=== PATIENT | female | born 1985 | race Caucasian/White ===

== ENCOUNTER 2016-10-01 08:35 | Emergency (ER) | payer BC ==
[2016-10-01 08:40] VITALS: BP 124/85; PULSE 91; TEMP 98; BMI 25.0
[2016-10-01] MEDS ORDERED: ACETAMINOPHEN 500 MG TABLET (FP) PO ONE (09:12)
--- NOTE | 2016-10-01 09:15 | PDOC ---
History of Present Illness - General Chief Complaint: Respiratory Stated Complaint: CHEST PAIN, SOB Time Seen by Provider: 10/01/16 09:11 History Source: Patient Exam Limitations: No Limitations - History of Present Illness Initial Comments: 10/01/16 09:12 Agent came to emergency department for evaluation of fevers, chills, generalized body aches, sore throat pain 2 days. 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 No one at home is sick. 10/01/16 10:03 10/01/16 12:44 Timing/Duration: reports: just prior to arrival Severity: reports: mild, moderate Associated Symptoms: reports: chest pain/soreness, cough, fever/chills, nasal congestion, nasal drainage, sore throat Beta Jessica Given by EMS(Core Measure): No Beta Jessica Taken at Home(Core Measure): No Beta Jessica Not Indicated at this Time(Core Measure): No Past History - Travel Traveled outside of the country in the last 30 days: No Close contact w/someone who was outside of country & ill: No - Past Medical History Allergies/Adverse Reactions: Allergies Allergy/AdvReac Type Severity Reaction Status Date / Time No Known Allergies Allergy Verified 10/01/16 08:37 Home Medications: Ambulatory Orders No Home Medications 0 dose .ROUTE UTDICT 12/22/12 Azithromycin [Zithromax -] 250 mg PO UTDICT #6 tab 10/01/16 Anemia: No Asthma: No Cardiac Disorders: No Diabetes: No HTN: No Hypercholesterolemia: No - Reproductive History (#): 2 Para: 0 Therapeutic (s) & number: Yes - Psycho/Social/Smoking Cessation Hx Anxiety: No Suicidal Ideation: No Smoking Status: Yes Smoking History: Never smoked Have you smoked in the past 12 months: No Number of Cigarettes Smoked Daily: 4 Information on smoking cessation initiated: No Hx Alcohol Use: No Drug/Substance Use Hx: No Substance Use Type: None Respiratory Specific PMHX - Complaint Specific PMHX Bronchitis: No Pneumonia: No Review of Systems - Review of Systems Able to Perform ROS?: Yes Is the patient limited Hungarian proficient: Yes Constitutional: Yes: Symptoms Reported, See HPI, Malaise HEENTM: Yes: See HPI, Nose Congestion, Throat Pain, Difficulty Swallowing. No: Symptoms Reported Respiratory: Yes: Symptoms reported, See HPI, Cough (moist non productive ) ABD/GI: No: Symptoms Reported Musculoskeletal: Yes: See HPI. No: Symptoms Reported Integumentary: Yes: Symptoms Reported, See HPI Neurological: No: Symptoms reported All Other Systems: Reviewed and Negative *Physical Exam - Vital Signs Last Vital Signs Temp Pulse Resp BP Pulse Ox 98 F 91 H 18 124/85 100 10/01/16 08:37 10/01/16 08:37 10/01/16 08:37 10/01/16 08:37 10/01/16 08:37 - Physical Exam General Appearance: Yes: Nourished, Appropriately Dressed, Apparent Distress, Mild Distress HEENT: positive: GIACOMO, TMs Normal, Pharyngeal Erythema, Nasal Congestion (lastly ), Rhinorrhea, Sinus Tenderness. negative: Normal ENT Inspection, Pharynx Normal, Tonsillar Exudate Neck: positive: Supple, Lymphadenopathy (R), Lymphadenopathy (L). negative: Tender Respiratory/Chest: positive: Lungs Clear, Normal Breath Sounds. negative: Respiratory Distress, Wheezing Cardiovascular: positive: Regular Rhythm Gastrointestinal/Abdominal: positive: Normal Bowel Sounds, Soft. negative: Tender Musculoskeletal: positive: Normal Inspection. 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 Patient given a watch and wait Zithromax prescription, understands will hold unless fevers greater than 101.5, purulent drainage from nose or cough or worsening symptoms and will start with follow-up at PMD *DC/Admit/Observation/Transfer Diagnosis at time of Disposition: Upper respiratory infection, viral - Discharge Dispostion Disposition: HOME Condition at time of disposition: Stable Admit: No - Prescriptions Prescriptions: Azithromycin [Zithromax -] 250 mg PO UTDICT #6 tab - Referrals Referrals: Amada Lau NP [Primary Care Provider] - - Patient Instructions Additional Instructions: Rest, drink lots of fluids: Teas, water, soups, Pedialyte Saltwater gargles Steamy showers/seem to face break up mucus Avoid contact with others until fevers and cough resolved Lots of handwashing and good hygiene Continue [id number] medications for symptomatic relief Tylenol or Motrin for fever and pain Start Zithromax for fevers greater than 101, worsening symptoms, and follow-up with PMD Followup with private physician in one to 2 days as needed Return to emergency department for worsened symptoms, fevers, dehydration - Post Discharge Activity Work/School Note: Back to Work, Back to School
[2016-10-01] MEDS ORDERED: ACETAMINOPHEN 500 MG TABLET (FP) ONE (09:19)
--- NOTE | 2016-10-04 10:11 | EKG ---
Test Reason : Blood Pressure : / mmHG Vent. Rate : 088 BPM Atrial Rate : 088 BPM P-R Int : 182 ms QRS Dur : 080 ms QT Int : 356 ms P-R-T Axes : 046 043 036 degrees QTc Int : 430 ms NORMAL SINUS RHYTHM NORMAL ECG NO PREVIOUS ECGS AVAILABLE Confirmed by OSCAR HOLBROOK MD ([id number]) on 10/04/2016 10:10:58 AM Referred By: Confirmed By:OSCAR HOLBROOK MD
== END 2016-10-01 11:03 | disposition home or self-care (01) ==
LOC: JERFT 08:35
DX: J06.9 Acute upper respiratory infection, unspecified (principal)
CPT/HCPCS: 84703; 87070; 87430; 87804; 93005; 93010; 99281-25

== ENCOUNTER 2018-08-01 22:08 | Emergency (ER) | payer SELFPAY ==
--- NOTE | 2018-08-01 22:23 | PDOC ---
History of Present Illness - General Stated Complaint: VOMITING Time Seen by Provider: 08/01/18 22:22 History Source: Patient Past History - Past Medical History Allergies/Adverse Reactions: Allergies Allergy/AdvReac Type Severity Reaction Status Date / Time No Known Allergies Allergy Verified 10/01/16 08:37 Home Medications: Ambulatory Orders No Home Medications 0 dose .ROUTE UTDICT 12/22/12 Azithromycin [Zithromax -] 250 mg PO UTDICT #6 tab 10/01/16 Anemia: No Asthma: No Cardiac Disorders: No Diabetes: No HTN: No Hypercholesterolemia: No - Reproductive History (#): 2 Para: 0 Therapeutic (s) & number: Yes - Suicide/Smoking/Psychosocial Hx Smoking Status: Yes Smoking History: Never smoked Have you smoked in the past 12 months: No Number of Cigarettes Smoked Daily: 4 Hx Alcohol Use: No Drug/Substance Use Hx: No Substance Use Type: None
[2018-08-01] MEDS ORDERED: SODIUM CHLORIDE 0.9% 1000 ML INFUS.BAG IV ONE ×2 (22:29→23:17)
[2018-08-01] MEDS ORDERED: ONDANSETRON 4 MG/2 ML VIAL IVPUSH ONE (22:29)
[2018-08-01] MEDS ORDERED: ACETAMINOPHEN 1000 MG/100 ML VIAL (NON FORMULARY) IVPB ONE (22:29)
[2018-08-01] MEDS ORDERED: FAMOTIDINE 20 MG/50 ML IVPB 20 MG/50 ML MG IVPB ONE ×2 (22:30→22:34)
[2018-08-01 22:33] VITALS: BMI 25.7
[2018-08-01] MEDS ORDERED: ACETAMINOPHEN INJECTION 100 ML IVPB ONE (22:33)
[2018-08-01] MEDS ORDERED: ONDANSETRON 4 MG/2 ML VIAL ONE (22:33)
[2018-08-01 22:39] LABS: VENOUS PC02 24.2 mmHg (38-52); VENOUS PH 7.51 (7.32-7.42); VENOUS PO2 28.2 mmHg (28-48)
[2018-08-01 22:45] LABS: BASO % 0.5 % (0-2.0); EOS % 0.1 % (0-4.5); HEMATOCRIT 41.6 % (32.4-45.2); HEMOGLOBIN 14.2 GM/dL (10.7-15.3); LYMPH % 6.4 % (8-40); MCH 31.8 pg (25.7-33.7); MCHC 34.1 g/dl (32.0-36.0); MEAN CELL VOLUME 93.3 fl (80-96); MEAN PLT VOLUME 8.4 fl (7.5-11.1); MONO % 4.8 % (3.8-10.2); NEUT % 88.2 % (42.8-82.8); PLATELET COUNT 371 K/MM3 (134-434); RBC 4.45 M/mm3 (3.60-5.2); WHITE BLOOD COUNT 16.2 K/mm3 (4.0-10.0)
--- NOTE | 2018-08-01 23:02 | PDOC ---
History of Present Illness - General Chief Complaint: Nausea/Vomiting Stated Complaint: VOMITING Time Seen by Provider: 08/01/18 22:22 History Source: Patient Exam Limitations: No Limitations - History of Present Illness Initial Comments: 08/01/18 22:35 The patient is a 32F with no PMH who presents to the ER with 5 hours of abrupt onset abdominal cramps, nausea, and vomiting. The patient is with her who provides some of the history. The patient states that they were out to eat and prior to eating any food, she began to feel nauseous. They had to leave the restaurant early due to her not feeling well. When they got home, she began to have NBNB vomiting and abdominal cramping. This continued to progress to spasms and she is now complaining of nausea, abdominal cramping, and hands and feet cramping. Past History - Past Medical History Allergies/Adverse Reactions: Allergies Allergy/AdvReac Type Severity Reaction Status Date / Time No Known Allergies Allergy Verified 08/01/18 22:33 Home Medications: Ambulatory Orders No Home Medications 0 dose .ROUTE UTDICT 12/22/12 Azithromycin [Zithromax -] 250 mg PO UTDICT #6 tab 10/01/16 Anemia: No Asthma: No Cardiac Disorders: No COPD: No CHF: No Diabetes: No HTN: No Hypercholesterolemia: No - Reproductive History (#): 2 Para: 0 Therapeutic (s) & number: Yes - Suicide/Smoking/Psychosocial Hx Smoking Status: Yes Smoking History: Never smoked Have you smoked in the past 12 months: No Number of Cigarettes Smoked Daily: 4 Information on smoking cessation initiated: No Hx Alcohol Use: No Drug/Substance Use Hx: No Substance Use Type: None Review of Systems - Review of Systems Able to Perform ROS?: Yes Comments:: 08/01/18 23:47 GENERAL/CONSTITUTIONAL: No fever or chills. No weakness. HEAD, EYES, EARS, NOSE AND THROAT: No change in vision. No ear pain or discharge. No sore throat. CARDIOVASCULAR: No chest pain, palpitations, or lightheadedness. RESPIRATORY: No cough, wheezing, shortness of breath, or hemoptysis. GASTROINTESTINAL: Positive for nausea, vomiting, and abdominal cramping. GENITOURINARY: No dysuria, frequency, hematuria, or change in urination. MUSCULOSKELETAL: Positive for cramping in hands and feet. SKIN: No rash or lesions. NEUROLOGIC: No headache, numbness, tingling, focal weakness, loss of consciousness, or change in strength/sensation. ENDOCRINE: No increased thirst. No abnormal weight change. HEMATOLOGIC/LYMPHATIC: No anemia, easy bleeding, or history of blood clots. ALLERGIC/IMMUNOLOGIC: No hives or skin allergy. Is the patient limited [place] proficient: No *Physical Exam - Vital Signs Last Vital Signs Temp Pulse Resp BP Pulse Ox 97.3 F L 95 H 22 H 130/72 98 08/01/18 22:31 08/01/18 22:31 08/01/18 22:31 08/01/18 22:31 08/01/18 22:31 - Physical Exam Comments: 08/01/18 23:51 GENERAL: Well developed, well nourished. Awake and alert. In mild distress. HEENT: Normocephalic, atraumatic. Hearing grossly normal. Moist mucous membranes. PERRLA, EOMI. No conjunctival pallor. NECK: Supple. Full ROM. CARDIOVASCULAR: Regular rate and rhythm. No murmurs, rubs, or gallops. PULMONARY: Tachypneic. Lungs clear to auscultation bilaterally. No wheezing, rales or rhonchi. ABDOMINAL: Soft. Diffusely tender. Non-distended. No rebound or guarding. MUSCULOSKELETAL: Normal range of motion at all joints. No bony deformities or tenderness. EXTREMITIES: No cyanosis. No clubbing. No edema. No calf tenderness or swelling. SKIN: Warm and dry. Normal capillary refill. No rashes. No jaundice. NEUROLOGICAL: Alert, awake, appropriate. Cranial nerves 2-12 grossly intact. Normal speech. Gait is normal without ataxia. PSYCHIATRIC: Cooperative. Good eye contact. Appropriate mood and affec Moderate Sedation - Procedure Monitoring Vital Signs: Procedure Monitoring Vital Signs Temperature 97.3 F L 08/01/18 22:31 Pulse Rate 95 H 08/01/18 22:31 Respiratory Rate 22 H 08/01/18 22:31 Blood Pressure 130/72 08/01/18 22:31 O2 Sat by Pulse Oximetry (%) 98 08/01/18 22:31 ED Treatment Course - LABORATORY CBC & Chemistry Diagram: 08/01/18 22:30 08/01/18 22:30 Medical Decision Making - Medical Decision Making 08/01/18 23:56 THe patient is a 32F with no pMH who presents with acute onset vomiting, nausea , and abdominal cramping. Pt denies bloody BMs, sick contacts, and other people who are sick who ate the same foods as her. Will treat symptomatically and reassess. 08/02/18 00:33 Pt is continuing to complain of nausea. CBC significant for WBC of 16 with left shift. CMP shows mild hypokalemia of 3.4. Will replete. Nausea is persisting after reglan and banana bag. Will give 4 zofran and 0.5mg ativan IV for anxiolysis. 08/02/18 01:08 Pt continuing to complain of nausea and not tolerating PO. Will discuss with inpatient team. 08/02/18 01:20 Pt has 2+ ketones. Will add serum acetone to evaluate for DKA. 08/02/18 01:40 Acetone negative. 08/02/18 01:51 Pt admits to smoking marijuana 3x/day. Already given ativan. Will d/c with PCP f /u. *DC/Admit/Observation/Transfer Diagnosis at time of Disposition: Hyperemesis - Discharge Dispostion Disposition: HOME Condition at time of disposition: Stable Decision to Admit order: No - Referrals - Patient Instructions Printed Discharge Instructions: DI for Nausea -- Adult Additional Instructions: Please follow up with your primary care physician in 2-3 days. Take a hot shower to feel better. Please return to the ER if you have any signs or symptoms of chest pain, shortness of breath, uncontrollable fever, chills, nausea, vomiting, numbness, tingling, or weakness in any part of your body, changes in vision, or slurred speech. Please return to the ER if symptoms persist, worsen, or new symptoms arise. - Post Discharge Activity
[2018-08-01 23:03] LABS: ALBUMIN 4.5 g/dl (3.4-5.0); ALK PHOS 64 U/L (45-117); ANION GAP 16 MMOL/L (8-16); BILIRUBIN,TOTAL 0.5 mg/dL (0.2-1); BLOOD UREA NITROGEN 15 mg/dL (7-18); CALCIUM 9.3 mg/dL (8.5-10.1); CHLORIDE 105 mmol/L (98-107); CO2 19 mmol/L (21-32); GLUCOSE,RANDOM 145 mg/dL (74-106); LIPASE 205 U/L (73-393); POTASSIUM 3.4 mmol/L (3.5-5.1); SGOT/AST 13 U/L (15-37); SGPT/ALT 20 U/L (13-61); SODIUM 140 mmol/L (136-145)
[2018-08-01] MEDS ORDERED: METOCLOPRAMIDE HCL INJECTION 10 MG/2 ML VIAL IVPB ONE (23:17)
[2018-08-01] MEDS ORDERED: METOCLOPRAMIDE HCL INJECTION 10 MG/2 ML VIAL ONE (23:18)
--- NOTE | 2018-08-01 23:21 | PDOC ---
Attending Attestation - HPI HPI: 08/01/18 23:58 The patient is a 32 year old female with no past medical history here today for evaluation of vomiting and cramping. The patient reports that 6 hours ago she was in a restaurant with her when she began to not feel well. She reports going home when her nausea and vomiting began. She reports that abdominal cramping began after she vomited. Patient also reports hand and lower extremity cramping to the point where she had difficulty standing. Patient denies headache, lightheadedness. Denies fever, chills. Denies chest pain, shortness of breath. Denies diarrhea. Allergies: NKA PCP: none reported <Christ Wilkes - Last Filed: 08/01/18 23:58> - Resident Resident Name: Oscar Campos - ED Attending Attestation I have performed the following: I have examined & evaluated the patient, The case was reviewed & discussed with the resident, I agree w/resident's findings & plan - Physicial Exam PE: 08/02/18 00:47 Pt has no flank pain. She is not febrile. She has normal heart rate. Abd is soft NT ND. No rebound and no guarding. Pt keeps bending her arm and she is not getting her IVF abnana bag. - Medical Decision Making 08/02/18 01:22 Pt has 2+ ketones. She is nauseous. We will push D50. Waiting for pt to receive the balance of her banana bag, she will be further hydrated as needed. K+ 10meQ will be given. Pr will be reassessed later 08/02/18 06:47 Pt felt better and she was discharged. She admitted that she uses marijuana throughout the day and likely has cyclical vomiting due to that. <Della Leigh - Last Filed: 08/02/18 06:47>
[2018-08-01] MEDS ORDERED: MAGNESIUM SULF 50% (8.12 MEQ/2 ML-1 GM VIAL) IVPB ONE (23:37)
[2018-08-01] MEDS ORDERED: KCL 10 MEQ IVPB 10 MEQ/100 ML INFUS.BAG IVPB SCH (23:45)
[2018-08-01] MEDS ORDERED: FOLIC ACID INJECTION - 1 MG, THIAMINE HCL 100 MG, MULTIVIT INJECTION ADULT 10 ML in SOD... IVPB ONE (23:52)
[2018-08-01] MEDS ORDERED: MAGNESIUM 1GM/D5W - 2 GM/200 ML IVPB IVPB ONE (23:54)
[2018-08-02] MEDS ORDERED: ONDANSETRON 4 MG/2 ML VIAL IVPUSH ONE (00:32)
[2018-08-02] MEDS ORDERED: LORazepam 2 MG/ML SDV VIAL ONE (00:39)
[2018-08-02] MEDS ORDERED: ONDANSETRON 4 MG/2 ML VIAL ONE (00:40)
[2018-08-02 00:52] LABS: URINE APPEARANCE CLEAR; URINE BILIRUBIN NEGATIVE (<2.0 mg/dL); URINE COLOR YELLOW; URINE GLUCOSE (UA) NEGATIVE (NEGATIVE); URINE KETONE 2+ (NEGATIVE); URINE LEUK ESTERASE NEGATIVE (NEGATIVE); URINE NITRITE NEGATIVE (NEGATIVE); URINE PROTEIN 1+ (NEGATIVE); URINE UROBILINOGEN NEGATIVE mg/dL (0.2-1.0)
[2018-08-02 00:58] LABS: EPI CELLS RARE /HPF (FEW); URINE BACTERIA RARE /hpf (NONE SEEN); URINE MUCUS FEW
[2018-08-02] MEDS ORDERED: KCL 10 MEQ IVPB 10 MEQ/100 ML INFUS.BAG IVPB SCH (01:00)
[2018-08-02] MEDS ORDERED: KCL 10 MEQ IVPB 10 MEQ/100 ML INFUS.BAG IVPB ONE (01:11)
[2018-08-02] MEDS ORDERED: DEXTROSE 50%-WATER - 25 GM/50 ML VIAL IVPUSH ONE (01:15)
[2018-08-02 01:21] VITALS: BP 93/52; PULSE 60; TEMP 97.5
[2018-08-02] MEDS ORDERED: DEXTROSE 50%-WATER - 25 GM/50 ML VIAL ONE (02:13)
== END 2018-08-02 02:51 | disposition home or self-care (01) ==
LOC: JER 22:08
PROC: 3E033GC Introduction of Other Therapeutic Substance into Peripheral Vein, Percutaneous Approach (ICD-10-PCS; principal; 2018-08-01)
PROC: 3E033GC Introduction of Other Therapeutic Substance into Peripheral Vein, Percutaneous Approach (ICD-10-PCS; 2018-08-01)
PROC: 3E033NZ Introduction of Analgesics, Hypnotics, Sedatives into Peripheral Vein, Percutaneous Approach (ICD-10-PCS; 2018-08-01)
PROC: 3E033GC Introduction of Other Therapeutic Substance into Peripheral Vein, Percutaneous Approach (ICD-10-PCS; 2018-08-01)
PROC: 3E033GC Introduction of Other Therapeutic Substance into Peripheral Vein, Percutaneous Approach (ICD-10-PCS; 2018-08-01)
PROC: 3E033GC Introduction of Other Therapeutic Substance into Peripheral Vein, Percutaneous Approach (ICD-10-PCS; 2018-08-01)
PROC: 3E0337Z Introduction of Electrolytic and Water Balance Substance into Peripheral Vein, Percutaneous Approach (ICD-10-PCS; 2018-08-01)
DX: R11.10 Vomiting, unspecified (principal); E87.6 Hypokalemia; R25.2 Cramp and spasm
CPT/HCPCS: 36415; 80053; 81003; 81015; 82009; 82803; 83690; 84703; 85025; 99283-25; J0131; J7030

== ENCOUNTER 2020-10-10 08:21 | Emergency (ER) | payer BC, OTHER ==
[2020-10-10 08:29] VITALS: BP 125/83; PULSE 84; TEMP 98.6; BMI 22.4
== END 2020-10-10 09:32 | disposition home or self-care (01) ==
LOC: JER 08:21
DX: K64.9 Unspecified hemorrhoids (principal)
CPT/HCPCS: 99282-25

== ENCOUNTER 2020-10-12 07:35 | Emergency (ER) | payer BC, OTHER ==
[2020-10-12 07:45] VITALS: BP 117/77; PULSE 91; BMI 23.3
[2020-10-12 09:55] LABS: BASO % 0.7 % (0-2.0); EOS % 0.7 % (0-4.5); HEMATOCRIT 40.4 % (32.4-45.2); HEMOGLOBIN 13.7 GM/dL (10.7-15.3); LYMPH % 17.6 % (8-40); MCH 31.7 pg (25.7-33.7); MCHC 33.9 g/dl (32.0-36.0); MEAN CELL VOLUME 93.6 fl (80-96); MEAN PLT VOLUME 8.9 fl (7.5-11.1); MONO % 6.3 % (3.8-10.2); NEUT % 74.7 % (42.8-82.8); PLATELET COUNT 284 K/MM3 (134-434); RBC 4.31 M/mm3 (3.60-5.2); RDW 13.3 % (11.6-15.6); WHITE BLOOD COUNT 6.7 K/mm3 (4.0-10.0)
[2020-10-12 10:02] LABS: INR 1.07 (0.83-1.09); PROTHROMBIN TIME (PATIENT) 12.9 SEC (9.7-13.0)
[2020-10-12 10:05] LABS: ACTIVATED PTT 25.9 SECONDS (25.2-36.5)
[2020-10-12 10:18] LABS: CHLORIDE 106 mmol/L (98-107); SODIUM 138 mmol/L (136-145)
[2020-10-12 10:21] LABS: ALBUMIN 4.4 g/dl (3.4-5.0); CALCIUM 9.3 mg/dL (8.5-10.1); GLUCOSE,RANDOM 85 mg/dL (74-106)
[2020-10-12 10:22] LABS: BLOOD UREA NITROGEN 13.8 mg/dL (7-18); CO2 24 mmol/L (21-32)
[2020-10-12 10:24] LABS: CREATININE 0.8 mg/dL (0.55-1.3); SGOT/AST 39 U/L (15-37); SGPT/ALT 20 U/L (13-61)
[2020-10-12 10:25] LABS: BILIRUBIN,TOTAL 0.8 mg/dL (0.2-1); TOT PROT 8.3 g/dl (6.4-8.2)
[2020-10-12 10:26] LABS: ALK PHOS 51 U/L (45-117); ANION GAP 8 MMOL/L (8-16)
[2020-10-12 10:28] LABS: POTASSIUM 8.4 mmol/L (3.5-5.1)
[2020-10-12 13:52] VITALS: TEMP 98.4
== END 2020-10-12 14:52 | disposition home or self-care (01) ==
LOC: JER 07:35
DX: K62.5 Hemorrhage of anus and rectum (principal); K52.9 Noninfective gastroenteritis and colitis, unspecified
CPT/HCPCS: 36415; 74177-TC; 80053; 82272; 84132; 85025; 85610; 85730; 99285-25; Q9967

== ENCOUNTER 2022-08-04 20:27 | Emergency (ER) | payer BC ==
[2022-08-04 20:49] VITALS: BP 126/73; PULSE 78; RESP 19; TEMP 98.6; BMI 25.7
[2022-08-04] MEDS ORDERED: ONDANSETRON 4 MG/2 ML VIAL IVPUSH ONE (21:04)
[2022-08-04] MEDS ORDERED: SODIUM CHLORIDE 0.9% 500 ML INFUS.BAG IV ONE (21:04)
[2022-08-04] MEDS ORDERED: ACETAMINOPHEN 1000 MG/100 ML BAG IVPB ONE (21:04)
[2022-08-04] MEDS ORDERED: LACTATED RINGERS SOLUTION 1000 ML INFUS.BAG IV ONE ×3 (21:07→23:47)
[2022-08-04] MEDS ORDERED: ONDANSETRON 4 MG/2 ML VIAL ONE ×2 (21:09→22:45)
[2022-08-04] MEDS ORDERED: ACETAMINOPHEN INJECTION 100 ML IVPB ONE (21:09)
[2022-08-04 21:52] LABS: BASO % 0.3 % (0-2.0); EOS % 0.2 % (0-4.5); HEMATOCRIT 44.1 % (32.4-45.2); HEMOGLOBIN 14.6 GM/dL (10.7-15.3); LYMPH % 6.1 % (8-40); MCHC 33.2 g/dl (32.0-36.0); MEAN CELL VOLUME 93.3 fl (80-96); MEAN PLT VOLUME 8.1 fl (7.5-11.1); MONO % 6.4 % (3.8-10.2); PLATELET COUNT 369 10^3/uL (134-434); RBC 4.72 M/mm3 (3.60-5.2); RDW 13.7 % (11.6-15.6); WHITE BLOOD COUNT 13.4 K/mm3 (4.0-10.0)
[2022-08-04 22:08] LABS: BLOOD UREA NITROGEN 11.9 mg/dL (7-18); CALCIUM 9.5 mg/dL (8.5-10.1)
[2022-08-04 22:11] LABS: CREATININE 0.8 mg/dL (0.55-1.3)
[2022-08-04 22:13] LABS: BILIRUBIN,TOTAL 0.9 mg/dL (0.2-1); TOT PROT 7.6 g/dl (6.4-8.2)
[2022-08-04] MEDS ORDERED: ONDANSETRON 4 MG/2 ML VIAL IVPB ONE (22:43)
[2022-08-04 23:32] LABS: URINE APPEARANCE CLEAR; URINE BILIRUBIN NEGATIVE (NEGATIVE); URINE COLOR YELLOW; URINE GLUCOSE (UA) NEGATIVE (NEGATIVE); URINE KETONE 4+ (NEGATIVE); URINE LEUK ESTERASE NEGATIVE (NEGATIVE); URINE NITRITE NEGATIVE (NEGATIVE); URINE PROTEIN TRACE (NEGATIVE)
[2022-08-04] MEDS ORDERED: TRIMETHOBENZAMIDE HCL 200MG/2ML INJ IM ONE ×2 (23:33→23:51)
== END 2022-08-05 00:40 | disposition home or self-care (01) ==
LOC: JER 20:27
PROC: 3E0333Z Introduction of Anti-inflammatory into Peripheral Vein, Percutaneous Approach (ICD-10-PCS; principal; 2022-08-04)
PROC: 3E033GC Introduction of Other Therapeutic Substance into Peripheral Vein, Percutaneous Approach (ICD-10-PCS; 2022-08-04)
PROC: 3E033GC Introduction of Other Therapeutic Substance into Peripheral Vein, Percutaneous Approach (ICD-10-PCS; 2022-08-04)
PROC: 3E023GC Introduction of Other Therapeutic Substance into Muscle, Percutaneous Approach (ICD-10-PCS; 2022-08-04)
DX: O21.0 Mild hyperemesis gravidarum (principal); Z3A.11 11 weeks gestation of pregnancy
CPT/HCPCS: 0241U-QW; 36415; 76801-TC; 80053; 81003; 84702; 85025; 87086; 93005; 93010; 99285-25

== ENCOUNTER 2022-08-06 10:55 | Inpatient (IN) | payer BC ==
[2022-08-06] MEDS ORDERED: DEXTROSE 5%-NORMAL SALINE 1,000 ML IV ONE (12:01)
[2022-08-06] MEDS ORDERED: METOCLOPRAMIDE HCL INJECTION 10 MG/2 ML VIAL IVPB ONE (12:02)
[2022-08-06] MEDS ORDERED: METOCLOPRAMIDE HCL INJECTION 10 MG/2 ML VIAL ONE (12:10)
[2022-08-06] MEDS ORDERED: FAMOTIDINE 20 MG/50 ML IVPB 20 MG/50 ML MG IVPB ONE ×4 (12:14→22:18)
[2022-08-06 12:37] LABS: BASO % 0.3 % (0-2.0); HEMATOCRIT 38.3 % (32.4-45.2); HEMOGLOBIN 12.9 GM/dL (10.7-15.3); LYMPH % 4.5 % (8-40); MCH 31.5 pg (25.7-33.7); MCHC 33.7 g/dl (32.0-36.0); MEAN CELL VOLUME 93.4 fl (80-96); MEAN PLT VOLUME 8.3 fl (7.5-11.1); NEUT % 90.2 % (42.8-82.8); PLATELET COUNT 366 10^3/uL (134-434); RDW 13.5 % (11.6-15.6)
[2022-08-06 12:39] LABS: EPI CELLS 36 /uL (0-25.1); HYALINE CASTS 0 /uL (0-3.1); URINE APPEARANCE CLEAR; URINE BACTERIA 448 /uL (0-1359); URINE BILIRUBIN NEGATIVE (NEGATIVE); URINE COLOR YELLOW; URINE GLUCOSE (UA) NEGATIVE (NEGATIVE); URINE KETONE 4+ (NEGATIVE); URINE LEUK ESTERASE NEGATIVE (NEGATIVE); URINE NITRITE NEGATIVE (NEGATIVE); URINE PROTEIN 1+ (NEGATIVE); URINE RBC 25 /uL (0-23.9); URINE UROBILINOGEN 0.2 mg/dL (0.2-1.0); URINE WBC 22 /uL (0-25.8)
[2022-08-06] MEDS ORDERED: ACETAMINOPHEN 1000 MG/100 ML BAG IVPB ONE (12:51)
[2022-08-06] MEDS ORDERED: ACETAMINOPHEN INJECTION 100 ML IVPB ONE (12:55)
[2022-08-06 13:17] LABS: BLOOD UREA NITROGEN 11.7 mg/dL (7-18); CALCIUM 9.5 mg/dL (8.5-10.1); MAGNESIUM 1.8 mg/dL (1.8-2.4)
[2022-08-06 13:18] LABS: ALBUMIN 3.7 g/dl (3.4-5.0)
[2022-08-06 13:20] LABS: CREATININE 0.7 mg/dL (0.55-1.3)
[2022-08-06 13:22] LABS: TOT PROT 7.2 g/dl (6.4-8.2)
[2022-08-06] MEDS ORDERED: DEXTROSE 5%-NORMAL SALINE 500 ML IV ONE (15:26)
[2022-08-06] MEDS ORDERED: FAMOTIDINE 20 MG PREMIXED IVPB IVPB ONE (18:30)
[2022-08-06] MEDS ORDERED: ELECTROLYTE-148 SOLN 1,000 ML IV SCH (18:30)
[2022-08-06] MEDS: DEXTROSE 5%-NORMAL SALINE 1,000 ML IV SCH (18:37)
[2022-08-06] MEDS ORDERED: METOCLOPRAMIDE HCL INJECTION 10 MG/2 ML VIAL IVPB PRN (20:15)
[2022-08-06] MEDS: ACETAMINOPHEN 1000 MG/100 ML BAG IVPB PRN (20:45)
[2022-08-06] MEDS: FAMOTIDINE 20 MG/50 ML IVPB 20 MG/50 ML MG IVPB SCH (22:43)
[2022-08-07] MEDS: DEXTROSE 5%-NORMAL SALINE 1,000 ML IV SCH (03:51)
[2022-08-07] MEDS: ACETAMINOPHEN 1000 MG/100 ML BAG IVPB PRN (03:58)
[2022-08-07 06:45] LABS: PH,URINE 5.5 (5.0-8.0); URINE APPEARANCE CLEAR; URINE BILIRUBIN NEGATIVE (NEGATIVE); URINE COLOR YELLOW; URINE GLUCOSE (UA) NEGATIVE (NEGATIVE); URINE KETONE 1+ (NEGATIVE); URINE LEUK ESTERASE NEGATIVE (NEGATIVE); URINE NITRITE NEGATIVE (NEGATIVE); URINE PROTEIN NEGATIVE (NEGATIVE)
[2022-08-07 10:43] LABS: BASO % 0.3 % (0-2.0); EOS % 0.1 % (0-4.5); HEMATOCRIT 33.7 % (32.4-45.2); HEMOGLOBIN 11.2 GM/dL (10.7-15.3); LYMPH % 8.4 % (8-40); MCH 31.4 pg (25.7-33.7); MCHC 33.2 g/dl (32.0-36.0); MEAN CELL VOLUME 94.4 fl (80-96); MEAN PLT VOLUME 8.5 fl (7.5-11.1); MONO % 8.4 % (3.8-10.2); NEUT % 82.8 % (42.8-82.8); PLATELET COUNT 287 10^3/uL (134-434); RBC 3.57 M/mm3 (3.60-5.2); RDW 13.4 % (11.6-15.6); WHITE BLOOD COUNT 10.7 K/mm3 (4.0-10.0)
[2022-08-07 10:56] LABS: INR 1.2 (0.83-1.09); PROTHROMBIN TIME (PATIENT) 13.8 SEC (9.7-13.0)
[2022-08-07 10:58] LABS: ACTIVATED PTT 25.7 SECONDS (25.2-36.5)
[2022-08-07 11:13] LABS: BLOOD UREA NITROGEN 4.5 mg/dL (7-18)
[2022-08-07 11:17] LABS: CALCIUM 8.3 mg/dL (8.5-10.1); CREATININE 0.5 mg/dL (0.55-1.3); PHOSPHOROUS 2.7 mg/dL (2.5-4.9)
[2022-08-07 11:19] LABS: MAGNESIUM 1.6 mg/dL (1.8-2.4); TOT PROT 5.7 g/dl (6.4-8.2)
[2022-08-07 11:23] LABS: BILIRUBIN,TOTAL 0.6 mg/dL (0.2-1)
[2022-08-07] MEDS: FAMOTIDINE 20 MG/50 ML IVPB 20 MG/50 ML MG IVPB SCH ×2 (11:42→21:54)
[2022-08-07] MEDS: PROMETHAZINE HCL 25 MG/1 ML VIAL IVPB PRN ×2 (13:16→23:23)
[2022-08-07] MEDS ORDERED: PROMETHAZINE HCL 25 MG/1 ML VIAL IVPB ONE (17:49)
[2022-08-07] MEDS: SUCRALFATE 1 GM/10 ML UNIT DOSE CUPS PO SCH (21:54)
[2022-08-08] MEDS: ACETAMINOPHEN 1000 MG/100 ML BAG IVPB PRN ×4 (02:53→23:10)
[2022-08-08 08:16] LABS: BASO % 0.5 % (0-2.0); EOS % 0.5 % (0-4.5); HEMATOCRIT 34.4 % (32.4-45.2); HEMOGLOBIN 11.7 GM/dL (10.7-15.3); LYMPH % 15.2 % (8-40); MCHC 33.9 g/dl (32.0-36.0); MEAN CELL VOLUME 94.3 fl (80-96); MEAN PLT VOLUME 8.5 fl (7.5-11.1); NEUT % 74.8 % (42.8-82.8); PLATELET COUNT 292 10^3/uL (134-434); RBC 3.65 M/mm3 (3.60-5.2); RDW 13.6 % (11.6-15.6); WHITE BLOOD COUNT 9.6 K/mm3 (4.0-10.0)
[2022-08-08 08:24] LABS: ACTIVATED PTT 26.7 SECONDS (25.2-36.5)
[2022-08-08 08:41] LABS: CALCIUM 8.4 mg/dL (8.5-10.1)
[2022-08-08 08:42] LABS: ALBUMIN 2.9 g/dl (3.4-5.0)
[2022-08-08 08:44] LABS: CREATININE 0.6 mg/dL (0.55-1.3); MAGNESIUM 1.7 mg/dL (1.8-2.4); PHOSPHOROUS 3.9 mg/dL (2.5-4.9); TOT PROT 5.5 g/dl (6.4-8.2)
[2022-08-08 08:45] LABS: INR 1.14 (0.83-1.09); PROTHROMBIN TIME (PATIENT) 13.1 SEC (9.7-13.0)
[2022-08-08] MEDS: D5-LR+20 MEQ KCL - 20 MEQ/1,000 ML INFUS.BAG IV SCH ×3 (08:45→21:26)
[2022-08-08 08:49] LABS: BILIRUBIN,TOTAL 0.5 mg/dL (0.2-1)
[2022-08-08 08:50] LABS: URINE APPEARANCE CLOUDY; URINE BILIRUBIN NEGATIVE (NEGATIVE); URINE COLOR YELLOW; URINE GLUCOSE (UA) NEGATIVE (NEGATIVE); URINE KETONE NEGATIVE (NEGATIVE); URINE LEUK ESTERASE NEGATIVE (NEGATIVE); URINE NITRITE NEGATIVE (NEGATIVE); URINE PROTEIN NEGATIVE (NEGATIVE); URINE UROBILINOGEN 0.2 mg/dL (0.2-1.0)
[2022-08-08] MEDS: PROMETHAZINE HCL 25 MG/1 ML VIAL IVPB PRN ×2 (09:11→20:06)
[2022-08-08] MEDS: SUCRALFATE 1 GM/10 ML UNIT DOSE CUPS PO SCH (10:04)
[2022-08-08] MEDS: POTASSIUM CHLORIDE TABS 20 MEQ TABLET.ER (FP) PO SCH (10:04)
[2022-08-08] MEDS: FAMOTIDINE 20 MG/50 ML IVPB 20 MG/50 ML MG IVPB SCH ×2 (13:09→21:21)
[2022-08-08] MEDS: DEXTROSE 5%-LACTATED RINGERS 1,000 ML IV SCH ×2 (20:03→22:06)
[2022-08-08] MEDS ORDERED: LACTATED RINGERS IV SCH (21:00)
[2022-08-08] MEDS ORDERED: DEXTROSE 5% IV SCH (21:00)
[2022-08-08] MEDS ORDERED: POTASSIUM CHLORIDE 20 MEQ in DEXTROSE 5%-LACTATED RINGERS 1,000 ML IV SCH (21:00)
[2022-08-08] MEDS ORDERED: POTASSIUM ACETATE IV SCH (21:00)
[2022-08-08] MEDS ORDERED: D5-LR+20 MEQ KCL - 20 MEQ/1,000 ML INFUS.BAG IV SCH (21:00)
[2022-08-08] MEDS: SUCRALFATE 1 GM TABLET (FP) PO SCH (21:22)
[2022-08-09] MEDS: PROMETHAZINE HCL 25 MG/1 ML VIAL IVPB PRN ×4 (02:38→23:59)
[2022-08-09] MEDS: D5-LR+20 MEQ KCL - 20 MEQ/1,000 ML INFUS.BAG IV SCH ×2 (06:10→21:56)
[2022-08-09] MEDS: ACETAMINOPHEN 1000 MG/100 ML BAG IVPB PRN ×2 (07:01→20:17)
[2022-08-09 08:45] LABS: ALBUMIN 2.8 g/dl (3.4-5.0); BLOOD UREA NITROGEN 3.3 mg/dL (7-18); CALCIUM 8.3 mg/dL (8.5-10.1)
[2022-08-09 08:47] LABS: CREATININE 0.5 mg/dL (0.55-1.3)
[2022-08-09 08:50] LABS: BILIRUBIN,TOTAL 0.5 mg/dL (0.2-1); TOT PROT 5.3 g/dl (6.4-8.2)
[2022-08-09] MEDS: FAMOTIDINE 20 MG/50 ML IVPB 20 MG/50 ML MG IVPB SCH ×2 (10:18→21:21)
[2022-08-09] MEDS: POTASSIUM CHLORIDE TABS 20 MEQ TABLET.ER (FP) PO SCH (10:25)
[2022-08-09] MEDS: SUCRALFATE 1 GM TABLET (FP) PO SCH ×2 (12:41→21:21)
[2022-08-09] MEDS ORDERED: THIAMINE HCL 200 MG/2 ML VIAL IVPB SCH (13:00)
[2022-08-09] MEDS: THIAMINE HCL 200 MG/2 ML VIAL IVPB SCH (18:10)
[2022-08-10] MEDS: PROMETHAZINE HCL 25 MG/1 ML VIAL IVPB PRN ×3 (06:09→18:00)
[2022-08-10] MEDS: D5-LR+20 MEQ KCL - 20 MEQ/1,000 ML INFUS.BAG IV SCH (06:09)
[2022-08-10 07:40] LABS: BASO % 0.6 % (0-2.0); EOS % 1.9 % (0-4.5); HEMATOCRIT 35.9 % (32.4-45.2); MCH 31.8 pg (25.7-33.7); MCHC 33.6 g/dl (32.0-36.0); MEAN CELL VOLUME 94.8 fl (80-96); MONO % 7.5 % (3.8-10.2); PLATELET COUNT 275 10^3/uL (134-434); RBC 3.79 M/mm3 (3.60-5.2); RDW 13.5 % (11.6-15.6); WHITE BLOOD COUNT 7.7 K/mm3 (4.0-10.0)
[2022-08-10 08:03] LABS: ALBUMIN 2.9 g/dl (3.4-5.0); BLOOD UREA NITROGEN 4.9 mg/dL (7-18); CALCIUM 8.5 mg/dL (8.5-10.1); MAGNESIUM 1.7 mg/dL (1.8-2.4)
[2022-08-10 08:06] LABS: CREATININE 0.6 mg/dL (0.55-1.3); PHOSPHOROUS 4.1 mg/dL (2.5-4.9)
[2022-08-10 08:07] LABS: BILIRUBIN,TOTAL 0.4 mg/dL (0.2-1); TOT PROT 5.6 g/dl (6.4-8.2)
[2022-08-10] MEDS: POTASSIUM CHLORIDE TABS 20 MEQ TABLET.ER (FP) PO SCH (09:07)
[2022-08-10] MEDS: SUCRALFATE 1 GM TABLET (FP) PO SCH ×2 (09:07→22:11)
[2022-08-10] MEDS: FAMOTIDINE 20 MG/50 ML IVPB 20 MG/50 ML MG IVPB SCH ×2 (09:07→21:07)
[2022-08-10] MEDS: ACETAMINOPHEN 1000 MG/100 ML BAG IVPB PRN ×2 (09:46→20:32)
[2022-08-10] MEDS: THIAMINE HCL 200 MG/2 ML VIAL IVPB SCH (10:29)
[2022-08-10] MEDS: DEXTROSE 5%-LACTATED RINGERS 1,000 ML IV SCH ×2 (13:43→23:54)
[2022-08-10 22:39] VITALS: RESP 18
[2022-08-11] MEDS: PROMETHAZINE HCL 25 MG/1 ML VIAL IVPB PRN
[2022-08-11] MEDS: PROMETHAZINE HCL 25 MG TABLET PO PRN ×2 (06:42→17:08)
[2022-08-11 08:35] LABS: BASO % 0.4 % (0-2.0); EOS % 1.7 % (0-4.5); HEMATOCRIT 34.9 % (32.4-45.2); HEMOGLOBIN 11.8 GM/dL (10.7-15.3); LYMPH % 11.5 % (8-40); MCH 32.1 pg (25.7-33.7); MCHC 33.8 g/dl (32.0-36.0); MEAN CELL VOLUME 95.1 fl (80-96); MONO % 6.7 % (3.8-10.2); NEUT % 79.7 % (42.8-82.8); PLATELET COUNT 289 10^3/uL (134-434); RBC 3.67 M/mm3 (3.60-5.2); RDW 13.8 % (11.6-15.6); WHITE BLOOD COUNT 9.2 K/mm3 (4.0-10.0)
[2022-08-11 08:48] LABS: ALBUMIN 2.8 g/dl (3.4-5.0); BLOOD UREA NITROGEN 5.7 mg/dL (7-18); CALCIUM 8.1 mg/dL (8.5-10.1); MAGNESIUM 1.7 mg/dL (1.8-2.4)
[2022-08-11 08:51] LABS: CREATININE 0.6 mg/dL (0.55-1.3); PHOSPHOROUS 3.9 mg/dL (2.5-4.9)
[2022-08-11 08:54] LABS: BILIRUBIN,TOTAL 0.2 mg/dL (0.2-1); TOT PROT 5.4 g/dl (6.4-8.2)
[2022-08-11] MEDS: FAMOTIDINE 20 MG TABLET PO SCH ×2 (09:53→21:27)
[2022-08-11] MEDS: ACETAMINOPHEN 500 MG TABLET (FP) PO PRN ×2 (09:53→17:08)
[2022-08-11] MEDS: SUCRALFATE 1 GM TABLET (FP) PO SCH (09:54)
[2022-08-11] MEDS ORDERED: POTASSIUM CHLORIDE TABS 20 MEQ TABLET.ER (FP) PO SCH (10:00)
[2022-08-11] MEDS: THIAMINE HCL 200 MG/2 ML VIAL IVPB SCH (10:20)
[2022-08-11 13:13] VITALS: BMI 25.4
[2022-08-11] MEDS ORDERED: SUCRALFATE 1 GM TABLET (FP) PO SCH ×2 (17:00→18:00)
[2022-08-12] MEDS: PROMETHAZINE HCL 25 MG TABLET PO PRN (05:00)
[2022-08-12] MEDS ORDERED: SUCRALFATE 1 GM TABLET (FP) PO SCH (05:00)
[2022-08-12 08:51] LABS: BASO % 0.5 % (0-2.0); EOS % 1.5 % (0-4.5); HEMATOCRIT 37.5 % (32.4-45.2); HEMOGLOBIN 12.7 GM/dL (10.7-15.3); LYMPH % 9.3 % (8-40); MCH 32.3 pg (25.7-33.7); MCHC 33.8 g/dl (32.0-36.0); MEAN CELL VOLUME 95.5 fl (80-96); MONO % 5.7 % (3.8-10.2); PLATELET COUNT 308 10^3/uL (134-434); RBC 3.93 M/mm3 (3.60-5.2)
[2022-08-12 09:10] LABS: ALBUMIN 3.3 g/dl (3.4-5.0); CALCIUM 8.9 mg/dL (8.5-10.1)
[2022-08-12 09:11] LABS: BLOOD UREA NITROGEN 8.8 mg/dL (7-18); MAGNESIUM 2.1 mg/dL (1.8-2.4)
[2022-08-12 09:13] LABS: CREATININE 0.6 mg/dL (0.55-1.3); PHOSPHOROUS 3.9 mg/dL (2.5-4.9)
[2022-08-12 09:15] LABS: BILIRUBIN,TOTAL 0.2 mg/dL (0.2-1); TOT PROT 6.2 g/dl (6.4-8.2)
[2022-08-12] MEDS: FAMOTIDINE 20 MG TABLET PO SCH (09:56)
[2022-08-12 10:39] VITALS: BP 104/55; PULSE 80; TEMP 98.4
[2022-08-12] MEDS: ACETAMINOPHEN 500 MG TABLET (FP) PO PRN (13:11)
== END 2022-08-12 15:30 | disposition home or self-care (01) | DRG 833 ==
LOC: JER 10:55 → JERBED 16:11 → J3W 17:55
PROVIDERS: ADMIT Obstetrics & Gynecology; ATTEND Obstetrics & Gynecology
DX: O21.1 Hyperemesis gravidarum with metabolic disturbance (principal); Z3A.12 12 weeks gestation of pregnancy; O34.11 Maternal care for benign tumor of corpus uteri, first trimester; D25.9 Leiomyoma of uterus, unspecified
CPT/HCPCS: 0241U-QW; 36415; 72195-TC; 74181-TC; 80053; 81003; 82150; 83605; 83690; 83735; 84100; 84436; 84443; 84702; 85025; 85610; 85730; 87040; 87086; 99285-25

== ENCOUNTER 2024-09-02 19:10 | Inpatient (IN) | payer BC ==
[2024-09-02 20:21] LABS: BASO % 0.7 % (0-2.0); EOS % 0.9 % (0-4.5); HEMATOCRIT 34.2 % (32.4-45.2); HEMOGLOBIN 11.1 GM/dL (10.7-15.3); LYMPH % 11.1 % (8-40); MCH 27.6 pg (25.7-33.7); MCHC 32.3 g/dl (32.0-36.0); MEAN CELL VOLUME 85.6 fl (80-96); MEAN PLT VOLUME 8.2 fl (7.5-11.1); MONO % 7.3 % (3.8-10.2); PLATELET COUNT 288 10^3/uL (134-434); RDW 14.5 % (11.6-15.6); WHITE BLOOD COUNT 11.9 K/mm3 (4.0-10.0)
[2024-09-02 20:27] LABS: INR 0.96 (0.83-1.09); PROTHROMBIN TIME (PATIENT) 10.6 SEC (9.7-13.0)
[2024-09-02 20:29] LABS: ACTIVATED PTT 25.9 SECONDS (25.2-36.5)
[2024-09-02 20:39] LABS: CHLORIDE 109 mmol/L (98-107); SODIUM 139 mmol/L (136-145)
[2024-09-02 20:40] LABS: CALCIUM 8.2 mg/dL (8.5-10.1)
[2024-09-02] MEDS: ELECTROLYTE-148 SOLN 1,000 ML IV SCH (20:40)
[2024-09-02 20:41] LABS: ANION GAP 11 mmol/L (4-13); BLOOD UREA NITROGEN 12.6 mg/dL (7-18); CO2 20 mmol/L (21-32); GLUCOSE,RANDOM 75 mg/dL (74-106)
[2024-09-02 20:44] LABS: CREATININE 0.6 mg/dL (0.55-1.3)
[2024-09-02 21:08] VITALS: BMI 34.7
[2024-09-02] MEDS: DINOPROSTONE 10 MG VAGINAL SUPPOSITORY VG ONE (21:25)
[2024-09-02 21:35] LABS: HIV INTERPRETATION NEGATIVE (NEGATIVE)
[2024-09-03] MEDS ORDERED: INSULIN (NOVOLOG) ASPART 100 UNITS/ML 10ML VIAL ONE (00:21)
[2024-09-03] MEDS: INSULIN (NOVOLOG) ASPART 100 UNITS/ML 10ML VIAL SQ ONE (00:32)
[2024-09-03] MEDS ORDERED: FENTANYL/BUPIVACAINE/NS/PF - PCEA - 50 ML DISP.SYRIN EP ONE ×4 (01:47→13:14)
[2024-09-03] MEDS: FENTANYL/BUPIVACAINE/NS/PF - PCEA - 50 ML DISP.SYRIN EP SCH (02:20)
[2024-09-03] MEDS ORDERED: NALOXONE HCL 0.4 MG/ML VIAL IVPUSH PRN (02:36)
[2024-09-03] MEDS ORDERED: LIDO 2%/EPI 1:200000 PRESRVFRE (20 ML SDVIAL) ONE (07:54)
[2024-09-03] MEDS ORDERED: FENTANYL CITRATE/PF 50 MCG/ML VIAL ONE ×4 (07:54→14:42)
[2024-09-03] MEDS ORDERED: OXYTOCIN 30 UNITS in 0.9% NS 30 UNIT/500 ML INFUS.BAG IVPB ONE (09:20)
[2024-09-03] MEDS: OXYTOCIN 30 UNITS in 0.9% NS 30 UNIT/500 ML INFUS.BAG IVPB SCH (09:28)
[2024-09-03] MEDS ORDERED: BUPIVACAINE HCL/PF 0.25% (2.5MG/ML) 10 ML VIAL ONE ×2 (10:41→13:34)
[2024-09-03] MEDS ORDERED: TERBUTALINE SULFATE 1 MG/1 ML VIAL SQ ONE (14:16)
[2024-09-03] MEDS: TERBUTALINE SULFATE 1 MG/1 ML VIAL SQ ONE (14:20)
[2024-09-03] MEDS ORDERED: AZITHROMYCIN IVPB 500 MG/250 ML BAG IVPB ONE (14:37)
[2024-09-03] MEDS ORDERED: morphine SULFATE/PF 1 MG/2 ML (2cc Syringe - QUVA) ONE (14:43)
[2024-09-03] MEDS ORDERED: SODIUM CHLORIDE 0.9% P/F 10 ML VIAL IJ ONE (14:48)
[2024-09-03] MEDS ORDERED: OXYTOCIN 20 UNITS in 0.9% NS 20 UNIT/1,000 ML INFUS.BAG IV ONE (15:54)
[2024-09-03 16:11] LABS: CORD BASE EXCESS -8.2 mmol/L (0-2); CORD HCO3 19.4 mmHg (20-29); CORD PCO2 47.2 mmHg (30-78); CORD pH 7.232 (7.14-7.44)
[2024-09-03 16:14] LABS: CORD HCO3 21.9 mmHg (20-29); CORD PCO2 66.8 mmHg (30-78); CORD pH 7.133 (7.14-7.44)
[2024-09-03] MEDS: OXYTOCIN 20 UNITS in 0.9% NS 20 UNIT/1,000 ML INFUS.BAG IV SCH (16:45)
[2024-09-03] MEDS ORDERED: IBUPROFEN 800 MG/8 ML IJ IVPB PRN (17:11)
[2024-09-03] MEDS ORDERED: WITCH HAZEL 50% (TUCKS) 40 PAD/JAR PAD TP PRN (17:11)
[2024-09-03] MEDS ORDERED: ACETAMINOPHEN 325 MG TABLET (FP) PO PRN (17:11)
[2024-09-03] MEDS ORDERED: METHYLERGONOVINE MALEATE 0.2 MG/1 ML AMP IM PRN (17:11)
[2024-09-03] MEDS: CEFAZOLIN 1 GM/D5W 1 GM/50 ML BAG IVPB SCH ×2 (18:45→23:30)
[2024-09-04] MEDS: SIMETHICONE 80 MG TAB.CHEW (FP) PO PRN (06:04)
[2024-09-04] MEDS: IBUPROFEN 600 MG TABLET (FP) PO PRN (06:04)
[2024-09-04 06:59] LABS: HEMOGLOBIN 8.9 GM/dL (10.7-15.3); MCH 27.6 pg (25.7-33.7); MCHC 31.7 g/dl (32.0-36.0); MEAN PLT VOLUME 8.3 fl (7.5-11.1); PLATELET COUNT 244 10^3/uL (134-434); RBC 3.21 M/mm3 (3.60-5.2); RDW 14.5 % (11.6-15.6); WHITE BLOOD COUNT 21.8 K/mm3 (4.0-10.0)
[2024-09-04 09:23] LABS: ANISOCYTOSIS 0; MACROCYTOSIS 0
[2024-09-04] MEDS: ENOXAPARIN NA (PORCINE) 40 MG/0.4 ML DISP.SYRIN SQ SCH (10:33)
[2024-09-04] MEDS: PRENATAL VITAMINS W/ FOLIC ACID TABLET (FP) PO SCH (10:33)
[2024-09-04] MEDS: oxyCODONE HCL 5 MG TABLET PO PRN (14:19)
[2024-09-04] MEDS ORDERED: BISACODYL 10 MG SUPP.RECT RC PRN (17:12)
[2024-09-06 08:54] LABS: HEMOGLOBIN 9.2 GM/dL (10.7-15.3); MCH 27.4 pg (25.7-33.7); MCHC 31.8 g/dl (32.0-36.0); MEAN PLT VOLUME 7.9 fl (7.5-11.1); PLATELET COUNT 293 10^3/uL (134-434); RBC 3.37 M/mm3 (3.60-5.2); RDW 14.9 % (11.6-15.6)
[2024-09-06 11:19] LABS: ANISOCYTOSIS 1+; MACROCYTOSIS 1+
[2024-09-06] MEDS: oxyCODONE HCL 5 MG TABLET PO PRN (20:54)
[2024-09-07 09:28] VITALS: BP 118/83; PULSE 80; RESP 18; TEMP 97.7
== END 2024-09-07 15:47 | disposition home or self-care (01) | DRG 788 ==
LOC: JDEL 19:10 → JLDR 19:23 → J3W 09-03 19:26
PROVIDERS: ADMIT Obstetrics & Gynecology; ATTEND Obstetrics & Gynecology
PROC: 10D00Z1 Extraction of Products of Conception, Low, Open Approach (ICD-10-PCS; principal; 2024-09-03)
DX: O42.92 Full-term premature rupture of membranes, unspecified as to length of time between rupture and onset of labor (principal); O48.0 Post-term pregnancy; Z3A.40 40 weeks gestation of pregnancy; O24.429 Gestational diabetes mellitus in childbirth, unspecified control; O34.13 Maternal care for benign tumor of corpus uteri, third trimester; Z37.0 Single live birth
CPT/HCPCS: 36415; 36600; 80048; 82803; 82962; 85025; 85610; 85730; 86780; 86850; 86900; 86901; 87389; 88307-TC; 94010